=== PATIENT | male | born 1990 | race Caucasian/White ===

== ENCOUNTER 2023-01-01 00:35 | Day surgery (SDC) | payer OTHER, SELFPAY ==
[2022-12-24 12:24] VITALS: BMI 29.1
--- NOTE | 2022-12-24 12:34 | PC.NURSE ---
Report to the Outpatient Waiting Room, entrance under the green pavilion located off [facility], at time 1000 on date 01/01/23. Planned Procedure Time: 1200. Time changes happen often and if your time is changed the preop area will call you the afternoon before. - You and your visitor will be asked to self-screen and do not enter if you have any COVID symptoms. - A mask is optional within the hospital at this time. Patients may have clear liquids (water, carbonated beverages, clear teas, apple juice) until 3 hours prior to surgery with a maximum of 20 ounces. - No food from midnight until time of surgery Take the following medications with a SIP of water the morning of surgery: BUSPIRONE DO NOT STOP ANY OF YOUR OTHER PRESCRIPTION MEDICATIONS PRIOR TO SURGERY EXCEPT THE FOLLOWING Medications to discontinue per physician: N/A Date to take last dose: N/A Please no make-up, nail maldivian, hairspray, perfume, deodorant, or body powder the day of surgery. No jewelry (including any body piercings) or valuables the day of surgery, leave them at home. Please take a shower or bath the night before, or the morning of, surgery with an antibacterial soap. Wear comfortable, loose fitting clothing. - Jewelry must be removed prior to entering the operating room. Rings and piercings that are not removed may be cut off. - The hospital will not accept responsibility for valuables. - Please leave all valuables, including medications, at home the day of surgery. If you are going home after surgery, a licensed milk truck driver must drive you home. - NO public transportation without another adult if you receive anesthesia. - We recommend that an adult stay with you for 24 hours following discharge. - We also recommend that you do not drive, make important decision, drink alcoholic beverages, or take any drugs that were not prescribed by your health care provider for at least 24 hours after your discharge time. Follow any additional instructions given to you from your surgeon. If you or anyone in your household have experienced Covid symptoms in the past week, please notify your surgeon or the nurse liaison at the phone number below for possible testing. Telephone instructions given to PT - KERLINE GIRON and asked if any additional questions and then verbalized understanding. Patient advised to call surgeon office or pre surgery nurse liaison [phone] if any additional questions.
[2023-01-01] VITALS (9 sets, daily range): BP systolic 122–148; BP diastolic 71–96; PULSE 49–86; RESP 12–20; TEMP 36.3; O2SAT 92–100
--- NOTE | 2023-01-01 10:22 | WPDANESEPPF ---
Anes - Initial Pre Proc Eval Procedure: Operation Date: 01/01/23 12:00 Proposed Procedures p Left Hydrocelectomy - Joseph Campa MD Date/Time: 01/01/23 10:22 Surgeon: Joseph Campa MD Pre Op Diagnosis: Lt Hydrocele, Overactive Bladder Patient Data Age: 32 Gender: M Height: 1.83 m Weight: 91.9 kg Last Vital Signs Temp 36.3 C L 01/01/23 09:45 Pulse 64 01/01/23 09:45 Resp 16 01/01/23 09:45 BP 140/78 01/01/23 09:45 Pulse Ox 100 01/01/23 09:45 O2 Del Method Room Air 01/01/23 09:45 Allergies Allergy/AdvReac Type Severity Reaction Status Date / Time No Known Allergies Allergy Verified 01/01/23 09:19 Home Medications Medication Instructions Recorded Confirmed Type aripiprazole 2 mg tablet (Abilify) 2 mg PO HS 12/24/22 12/24/22 History buspirone 5 mg tablet 5 mg PO BID 12/24/22 12/24/22 History cetirizine 10 mg tablet (Zyrtec) 10 mg PO DAILY 12/24/22 12/24/22 History dextroamphetamine-amphetamine 20 20 mg PO BID 12/24/22 12/24/22 History mg tablet (Adderall) fluticasone propionate 50 1 spray intranasal DAILY 12/24/22 12/24/22 History mcg/actuation nasal spray,suspension Patient hx anesthesia problems: none Family hx anesthesia problems: none Results Review: All pre-operative results and documents have been reviewed as part of the pre-operative evaluation. [facility] Past Medical History Medical History (Updated 01/01/23 @ 10:22 by Valentin Morales MD) ADHD Anxiety Depression Surgical History Surgical History (Updated 01/01/23 @ 10:23 by Valentin Morales MD) History of excision of pilonidal cyst Social History Social History Smoking packs per day: 1 Smoking cigarettes per day: 20.0 Years smoked: 9 Smoking pack-years: 9.00 Smoking status: Current every day smoker Tobacco type: cigarettes and e-cigarettes/vaping Additional smoking assessment comments: QUIT CIGARETTES 2016, NOW VAPING Alcohol intake: never Substance use: current Substance use type: marijuana Living arrangements: alone Spiritual care concerns: No Anes - Eval Final PreProcedure Day of Procedure 01/01/23 10:22 Patient weight: overweight Heart: regular rate and rhythm Lungs: clear to auscultation Airway: Mallampati scale class II and special considerations poor dentition Neurological: alert and oriented Last oral intake: >/= 8 hours ASA classification: II Emergent: no Anesthetic plan: proceed Anesthesia type and monitoring: general LMA and standard monitoring Results Review: All pre-operative results and documents have been reviewed as part of the pre-operative evaluation. Informed Consent: The patient's anesthetic plan and its attendant risks and benefits were discussed with the patient/family/POA. Questions were solicited and answers provided to the satisfaction of the patient/family/POA.
--- NOTE | 2023-01-01 12:22 | WPDHPUPDATE1 ---
History and Physical Update Update Date/Time: 01/01/23 12:22 History and Physical has been reviewed, including an updated exam of the patient. There are NO changes in the patient's condition. Risks, benefits, and alternatives have been discussed and questions answered. Patient agrees to proceed with procedure. Proceed with left hydrocelectomy
[2023-01-01] MEDS: ceFAZolin 2 GM/D5W 50 ML 2 GM/50 ML BAG IVPB (12:39)
[2023-01-01] MEDS: LIDOCAINE HCL 1% LOCAL INJ 20 ML VIAL INFILTRATE (12:39)
--- NOTE | 2023-01-01 13:27 | W.PM.PROC2 ---
Procedure Note - Detailed Date of Procedure 01/01/23 Pre-op Diagnosis Lt Hydrocele, Overactive Bladder Post-op Diagnosis Same Procedure Performed Left hydrocelectomy with left orchiopexy Surgeon Joseph Campa MD Anesthesia General Description of Procedure Patient is taken to the operative suite and correctly identified. Once anesthesia was obtained was prepped and draped usual sterile fashion. Transverse incision was made in the left hemiscrotum. This was carried down through the tunica layers. The hydrocele sac was dissected free and brought out into the operative field. We incised it and drained 300 cc of straw-colored fluid. The excess tissue was then excised and sent for analysis. His epididymis is not distinctly attached to the testicle. We left the attachment to the testicle. We then did an orchiopexy by securing the inferior aspect in the medial aspect. I could not place the lateral securing stitch due to the epididymis being free floating. Tunica was then closed with 3-0 chromic in running fashion. This was done after a quarter-inch Zena drain was placed through a separate stab incision and secured. The wound was insist injected with 1% lidocaine. Skin was closed using 3-0 chromic in a running fashion. Patient tolerated procedure well without any complications and was taken recovery stable condition. He will remove the drain on or Saturday. He will follow-up in 3-4 weeks time. This complete dictation. Please send a copy to my office Drains Yes Packing No Pathology Yes Complications No immediate complications Condition Stable Disposition PACU
[2023-01-01] MEDS: LACTATED RINGERS 1,000 ML 30 ML IV CONT (13:39)
[2023-01-01] MEDS: fentaNYL CITRATE INJ (*CRX) 100 MCG/2 ML VIAL 25 MCG IV PUSH ×4 (13:55→14:06)
[2023-01-01] MEDS: IBUPROFEN 400 MG TABLET 800 MG PO (14:56)
== END 2023-01-01 15:23 | disposition home or self-care (01) ==
PROVIDERS: PCP Nurse Practitioner; Visit Provider Urology
PROC: (CPT 55040; principal; 2023-01-01 12:00)
DX: N43.3 Hydrocele, unspecified (principal); N32.81 Overactive bladder; F90.9 Attention-deficit hyperactivity disorder, unspecified type; F41.9 Anxiety disorder, unspecified; F32.A Depression, unspecified; F17.290 Nicotine dependence, other tobacco product, uncomplicated; F12.90 Cannabis use, unspecified, uncomplicated
CPT/HCPCS: 55040; 54640; 88302; A9270; J0690; J1100; J2250; J2405; J2704; J3010; J7120

== ENCOUNTER 2023-05-15 12:49 | Emergency (ER) | payer OTHER, SELFPAY ==
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
[2023-05-15 13:19] LABS: Basophils Percent Auto 0.1 % (0.2-1.2); Eosinophils Percent Auto 0.3 % (0-4.4); Hematocrit 42.6 % (42.0-52.0); Hemoglobin 14.3 g/dL (14.0-18.0); Immature Granulocyte Absolute 0.05 K/mm3 (0.00-0.031); Immature Granulocyte Percent A 0.6 % (0-0.5); Lymphocytes Absolute Auto 1.51 K/mm3 (0.9-3.2); Lymphocytes Percent Auto 17.2 % (18.3-44.2); Mean Corpuscular HGB Conc 33.6 g/dl (32-36); Mean Corpuscular Hemoglobin 30.2 pg (26-34); Mean Corpuscular Volume 89.9 fl (80-100); Mean Platelet Volume 10.3 fl (7.4-10.4); Monocytes Absolute Auto 0.6 K/mm3 (0.1-0.6); Monocytes Percent Auto 7.1 % (2.6-8.5); Neutrophils Absolute Auto 6.5 K/mm3 (1.3-6.7); Neutrophils Percent Auto 74.7 % (45.5-73.1); Platelet Count Result 243 k/mm3 (150-375); Red Blood Count 4.74 M/mm3 (4.6-6.20); Red Cell Distribution Width 11.9 % (11.5-14.5); White Blood Count 8.8 K/mm3 (4.5-10.0)
[2023-05-15 13:21] LABS: Appearance Urine Clear (Clear); Bilirubin Urine Negative (Negative); Blood Urine Negative (Negative); Color Urine Yellow (Yellow); Glucose Urine UA Negative (Negative); Ketones Urine Negative (Negative); Leukocyte Esterase Ur Negative LEU/UL (Negative); Nitrate Urine Negative (Negative); Protein Urine Negative (Negative); Specific Grav Ur 1.002 (1.001-1.035); Urobilinogen Urine 0.2 mg/dL (<2.0)
[2023-05-15 13:34] LABS: Add Urine Microscopic? NO
[2023-05-15 13:35] LABS: Alanine Aminotransferase 27 U/L (6-50); Albumin Level 4.5 g/dL (3.5-5.1); Alkaline Phosphatase 57 U/L (38-126); Anion Gap 6 mmol/L (8-16); Aspartate Amino Transferase 32 U/L (17-59); Bilirubin,Total 0.5 mg/dL (0.2-1.3); Blood Urea Nitrogen 7 mg/dL (9-20); Carbon Dioxide 29 mmol/L (22-30); Chloride 104 mmol/L (98-107); Estimated Glomerular Filt Rate > 60; Glucose 97 mg/dL (65-110); Potassium 3.8 mmol/L (3.4-5.0); Sodium 139 mmol/L (137-145)
[2023-05-15 13:36] LABS: Amphetamine Screen Urine Negative (Negative); Barbiturate Screen Urine Negative (Negative); Benzodiazepines Screen Urine Negative (Negative); Cannabinoid Screen Urine Positive (Negative); Cocaine Screen Urine Negative (Negative); Methadone Screen Urine Negative (Negative); Opiate Screen Urine Negative (Negative); Phencyclidine Screen Urine Negative (Negative)
[2023-05-15 13:51] VITALS: BP 128/60; PULSE 78; TEMP 37.2; O2SAT 90
[2023-05-15 13:55] LABS: Influenza A QL RT-PCR Negative (Negative); Influenza B QL RT-PCR Negative (Negative); RSV RNA, RT-PCR Negative (Negative); SARS-CoV-2 RNA PCR Negative (Negative)
[2023-05-15 14:05] LABS: Thyroid Stimulating Hormone 0.411 uIU/mL (0.465-4.680)
[2023-05-15 15:41] VITALS: BP 134/84; PULSE 87; RESP 16; O2SAT 99
== END 2023-05-15 15:46 | disposition home or self-care (01) ==
PROVIDERS: Emergency Provider Student in an Organized Health Care Education/Training Program; PCP Nurse Practitioner
DX: F32.A Depression, unspecified (principal); Z11.52 Encounter for screening for COVID-19; F90.9 Attention-deficit hyperactivity disorder, unspecified type; F41.9 Anxiety disorder, unspecified; F17.290 Nicotine dependence, other tobacco product, uncomplicated; Z79.899 Other long term (current) drug therapy
CPT/HCPCS: 36415; 80053; 80307; 81003; 84443; 85025; 87637; 99284